=== PATIENT | female | born 1970 | race African-American/Black ===

== ENCOUNTER → 2016-10-29 | Outpatient (CLI) | payer BC ==
[~2016-10-29] MED LIST: BIOTIN PO
== END ==
LOC: ULTRA 01:26
DX: N63 Unspecified lump in breast (principal)

== ENCOUNTER → 2017-12-17 | Outpatient (CLI) | payer BC | LOC: RAD 08:27 | DX: Z12.31 Encounter for screening mammogram for malignant neoplasm of breast (principal) ==

== ENCOUNTER → 2019-11-02 | Outpatient (CLI) | payer BC | LOC: BC 00:58 | DX: Z12.31 Encounter for screening mammogram for malignant neoplasm of breast (principal) ==

== ENCOUNTER → 2019-11-09 | Outpatient (CLI) | payer BC | LOC: BC 11:02 | DX: N60.01 Solitary cyst of right breast (principal) ==

== ENCOUNTER → 2020-12-07 | Outpatient (CLI) | payer BC | LOC: BC 11-28 14:13 | PROVIDERS: ATTEND Obstetrics & Gynecology | DX: Z12.31 Encounter for screening mammogram for malignant neoplasm of breast (principal) ==